=== PATIENT | female | born 1960 | race Caucasian/White ===

== ENCOUNTER → 2017-07-30 | Outpatient (CLI) | payer BC ==
[~2017-07-30] MED LIST: ASPI81CH PO; BACL10 PO; CALTRATE 600 +1 EACH PO; CALTRATE PO; CHOL10002 PO; COPAXONE SQ; Crutch1 EACH MISC; ERGO400 PO; ESCI20 PO; ESTR.1TPW TOP; FOSI10 PO; Fosinopril Sodi20 MG PO; INSDET100 SC; INSDET100 SQ; INSR10I SC; INSU100I6 SC; LEVSOD50 PO; META800 PO; NAPR500 PO; OXYACE5T PO; OXYC5 PO; Percocet 5-3251 EACH PO; SIMV10 PO; SIMV20 PO
[2017-07-30 07:17] LABS: Source, Urine Clean Catch
[2017-07-30 13:45] LABS: Appearance, Urine Clear (Clear); Bilirubin, Urine Neg (Neg); Blood, Urine Neg (Neg); Color, Urine Yellow (P-Yellow); Glucose Qualitative, Urine Neg (Neg); Ketones, Urine Neg (Neg); Leukocyte Esterase, Urine 1+ (Neg); Nitrite, Urine Neg (Neg); Protein, Urine Neg (Neg); Specific Gravity, Urine 1.005 (1.003-1.022); Urobilinogen, Urine NORM (Normal); pH, Urine 6.5 (5.0-8.0)
[2017-07-30 13:55] LABS: Bacteria Few /hpf; Squamous Epithelial Cells Rare /hpf (Few)
== END ==
LOC: LAB SHORT 07:14 → LAB 07:14 → LAB FUT 07-29 15:35
PROVIDERS: Physician Assistant Medical
DX: E03.8 Other specified hypothyroidism (principal); E10.40 Type 1 diabetes mellitus with diabetic neuropathy, unspecified; R73.09 Other abnormal glucose; R53.83 Other fatigue; E78.4 Other hyperlipidemia; E56.8 Deficiency of other vitamins
CPT/HCPCS: 81001; 87086